=== PATIENT | female | born 1960 | race Caucasian/White ===

== ENCOUNTER 2017-08-08 18:12 | Emergency (ER) | payer OTHER ==
[2017-08-08] MEDS: IBUPROFEN 600 MG TAB PO (20:50)
== END 2017-08-08 22:40 | disposition home or self-care (01) ==
LOC: E/R 18:12 → FTE 22:40
DX: M25.561 Pain in right knee (principal); I10 Essential (primary) hypertension; Z87.891 Personal history of nicotine dependence
CPT/HCPCS: 73562; 99283-25

== ENCOUNTER 2017-10-24 19:15 | Emergency (ER) | payer OTHER ==
[2017-10-24] MEDS: ACETAMINOPHEN 325 MG TAB PO (22:19)
[2017-10-24] MEDS: KETOROLAC 60 MG INJ IM (22:20)
== END 2017-10-25 02:45 | disposition home or self-care (01) ==
LOC: FTE 10-25 02:45
DX: M25.562 Pain in left knee (principal); I10 Essential (primary) hypertension; F17.210 Nicotine dependence, cigarettes, uncomplicated
CPT/HCPCS: 76536; 93971; 96372; 99285-25

== ENCOUNTER 2017-12-28 16:35 | Emergency (ER) | payer OTHER ==
[2017-12-28] MEDS: HYDROCODONE/APAP (5/325) TAB PO (17:03)
[2017-12-28] MEDS: KETOROLAC 60 MG INJ IM (17:03)
== END 2017-12-28 18:16 | disposition home or self-care (01) ==
LOC: FTE 16:35
DX: M25.562 Pain in left knee (principal); I10 Essential (primary) hypertension; F17.210 Nicotine dependence, cigarettes, uncomplicated; Z85.41 Personal history of malignant neoplasm of cervix uteri
CPT/HCPCS: 29505; 73562; 93971; 96372; 99285-25

== ENCOUNTER 2018-05-10 16:39 | Emergency (ER) | payer OTHER ==
[2018-05-10] MEDS: METHYLPREDNISOLONE 125 MG INJ IV (19:04)
[2018-05-10] MEDS: SOD CHLORIDE 0.9% 1,000 ML IV (19:04)
[2018-05-10 19:11] LABS: ADD MAN DIFF? NO
[2018-05-10] MEDS: ALBUTEROL 0.5% (NEB) 2.5 MG/0.5 ML AMP INH (19:13)
[2018-05-10] MEDS: IPRATROPIUM (NEB) 0.5 MG/2.5 ML AMP INH (19:13)
[2018-05-10 19:15] LABS: WHITE BLOOD COUNT 5.4 10^3/ul (4.8-10.8)
[2018-05-10 19:15] LABS: BASOPHILS % 0.6 % (0.0-2.0); EOSINOPHILS # 0.2 10^3/ul (0.0-0.5); EOSINOPHILS % 3.9 % (0.0-7.0); HEMATOCRIT 38.8 % (37.0-47.0); HEMOGLOBIN 12.6 g/dl (12.0-16.0); LYMPHOCYTES % 36.8 % (15.0-51.0); MEAN CORPUSCULAR HEMOGLOBIN 30.6 pg (29.0-33.0); MEAN CORPUSCULAR HGB CONC 32.5 g/dl (32.0-37.0); MEAN CORPUSCULAR VOLUME 94.2 fl (82.0-101.0); MEAN PLATELET VOLUME 10.8 fl (7.4-10.4); MONOCYTE # 0.4 10^3/ul (0.3-0.9); MONOCYTES % 7.7 % (0.0-11.0); NEUTROPHIL # 2.8 10^3/ul (1.6-7.5); NEUTROPHILS % 50.6 % (39.0-77.0); PLATELET COUNT 140 10^3/UL (140-415); RED BLOOD COUNT 4.12 10^6/ul (4.20-5.40); RED CELL DISTRIBUTION WIDTH 12.4 % (11.5-14.5)
[2018-05-10 19:33] LABS: ALANINE AMINOTRANSFERASE 28 IU/L (13-69); ALBUMIN 4.1 g/dl (3.3-4.9); ALBUMIN/GLOBULIN RATIO 1.24; ALKALINE PHOSPHATASE 88 IU/L (42-121); ANION GAP 9 (5-13); ASPARTATE AMINO TRANSFERASE 31 IU/L (15-46); BILIRUBIN,INDIRECT 0.2 mg/dl (0-1.1); BILIRUBIN,TOTAL 0.2 mg/dl (0.2-1.3); BLOOD UREA NITROGEN 13 mg/dl (7-20); CALCIUM 9.2 mg/dl (8.4-10.2); CARBON DIOXIDE 28 mmol/L (21-31); CHLORIDE 104 mmol/L (97-110); Estimated GFR > 60 mL/min (>60); GLUCOSE 109 mg/dl (70-220); POTASSIUM 4.1 mmol/L (3.5-5.1); SODIUM 141 mmol/L (135-144); TOTAL PROTEIN 7.4 g/dl (6.1-8.1)
== END 2018-05-10 21:38 | disposition home or self-care (01) ==
LOC: FTE 16:39
DX: R05 Cough (principal); I10 Essential (primary) hypertension; F17.210 Nicotine dependence, cigarettes, uncomplicated; J44.1 Chronic obstructive pulmonary disease with (acute) exacerbation
CPT/HCPCS: 71045; 80053; 85025; 94644; 96374; 99284-25

== ENCOUNTER 2018-10-01 07:58 | Emergency (ER) | payer SELFPAY, OTHER ==
[2018-10-01] MEDS: ONDANSETRON (ODT) 4 MG TAB ODT (08:36)
[2018-10-01] MEDS: HYDROCODONE/APAP (5/325) TAB PO (08:36)
== END 2018-10-01 09:26 | disposition home or self-care (01) ==
LOC: FTE 07:58
DX: M77.32 Calcaneal spur, left foot (principal); M19.90 Unspecified osteoarthritis, unspecified site; I10 Essential (primary) hypertension; F17.210 Nicotine dependence, cigarettes, uncomplicated
CPT/HCPCS: 73630; 73630-LT; 73650-LT; 99283-25